=== PATIENT | female | born 1965 | race American Indian/Alaskan Native ===

== ENCOUNTER 2016-11-02 19:13 | Emergency (ER) | payer SELFPAY ==
[2016-11-02 20:52] LABS: Basophils % (Auto) 0.7 % (0.0-1.8); Eosinophils % (Auto) 4.1 % (0.0-4.3); Hematocrit 34.4 % (30.3-42.9); Hemoglobin 10.9 gm/dl (10.1-14.3); Mean Corpuscular HGB Conc 32 % (30-34); Mean Corpuscular Volume 75 fl (79-97); Platelet Count 245 K/mm3 (140-440); Red Blood Count 4.61 M/mm3 (3.65-5.03); Red Cell Distribution Width 17.5 % (13.2-15.2); White Blood Count 6.9 K/mm3 (4.5-11.0)
[2016-11-02 21:00] LABS: Mean Corpuscular Hemoglobin 24 pg (28-32)
[2016-11-02 21:10] LABS: Anion Gap 17 mmol/L; BUN/Creatinine Ratio 13.33; Blood Urea Nitrogen 12 mg/dL (7-17); Calcium 8.8 mg/dL (8.4-10.2); Carbon Dioxide 26 mmol/L (22-30); Chloride 96.6 mmol/L (98-107); Glucose 102 mg/dL (65-100); Potassium 3.9 mmol/L (3.6-5.0); Sodium 136 mmol/L (137-145)
--- NOTE | 2016-11-03 06:35 | Emergency Department Report ---
ED Chest Pain HPI - General Chief Complaint: Chest Pain Stated Complaint: CHEST PAIN Time Seen by Provider: 11/03/16 06:08 Source: patient Mode of arrival: Ambulatory Limitations: No Limitations - History of Present Illness Initial Comments: 51-year-old female presents to the emergency department complaining of chest pain. Patient reports the onset of chest pain 2 days ago. Pain has been intermittent since onset. Patient describes a sharp pain in the upper part of her chest that radiates just to the left of her sternum. Pain is worse with cough and deep breathing. She denies associated shortness of breath, dizziness , diaphoresis, nausea, or vomiting. Patient is pain-free at this time. There are no other complaints. MD Complaint: chest pain -: Gradual, days(s) (2) Onset: during rest Pain Location: substernal Pain Radiation: other (left of sternum) Severity: severe Severity scale (0 -10): 8 Quality: sharp Consistency: intermittent Improves With: nothing Worsens With: inspiration, palpation, movement re: denies: nausea, vomting, diaphoresis, dyspnea Other Symptoms: cough. denies: fever Treatments Prior to Arrival: none Aspirin use within the Past 7 Days: (0) No - Related Data Previous Rx's Medication Instructions Recorded Last Taken Type Amiodarone [Cordarone 200 MG TAB] 200 mg PO BID #60 tablet 09/10/16 Unknown Rx Carvedilol [Coreg] 3.125 mg PO BID #60 tablet 09/10/16 Unknown Rx Furosemide [Lasix] 20 mg PO QDAY #30 tablet 09/10/16 Unknown Rx Lisinopril [Zestril TAB] 2.5 mg PO QDAY #30 tablet 09/10/16 Unknown Rx Ibuprofen [Motrin 800 MG tab] 800 mg PO Q8HR PRN #20 tablet 11/03/16 Unknown Rx Allergies Allergy/AdvReac Type Severity Reaction Status Date / Time No Known Allergies Allergy Unverified 09/05/16 02:49 SHAZIA score - Shazia Score Age > 65: (0) No Aspirin use within the Past 7 Days: (0) No 3 or more CAD Risk Factors: (0) No 2 or more Angina events in past 24 hrs: (1) Yes Known CAD with more than 50% Stenosis: (0) No Elevated Cardiac Markers: (0) No ST Deviation Greater than 0.5mm: (0) No SHAZIA Score: 1 ED Review of Systems ROS: Stated complaint: CHEST PAIN Other details as noted in HPI Comment: All other systems reviewed and negative Respiratory: cough Cardiovascular: chest pain ED Past Medical Hx - Past Medical History Previous Medical History?: Yes Hx Congestive Heart Failure: Yes Hx Asthma: Yes Additional medical history: Anemia - Surgical History Past Surgical History?: No - Family History Family history: no significant - Social History Smoking Status: Never Smoker Substance Use Type: None - Medications Home Medications: Home Medications Medication Instructions Recorded Confirmed Last Taken Type Amiodarone [Cordarone 200 MG TAB] 200 mg PO BID #60 tablet 09/10/16 Unknown Rx Carvedilol [Coreg] 3.125 mg PO BID #60 tablet 09/10/16 Unknown Rx Furosemide [Lasix] 20 mg PO QDAY #30 tablet 09/10/16 Unknown Rx Lisinopril [Zestril TAB] 2.5 mg PO QDAY #30 tablet 09/10/16 Unknown Rx Ibuprofen [Motrin 800 MG tab] 800 mg PO Q8HR PRN #20 tablet 11/03/16 Unknown Rx ED Physical Exam - General Limitations: No Limitations General appearance: alert, in no apparent distress - Head Head exam: Present: atraumatic, normocephalic - Eye Eye exam: Present: normal appearance, PERRL, EOMI - ENT ENT exam: Present: normal exam, normal orophraynx, mucous membranes moist - Neck Neck exam: Present: normal inspection, full ROM. Absent: tenderness - Respiratory Respiratory exam: Present: normal lung sounds bilaterally, chest wall tenderness (anterior superior chest wall tenderness to palpation. Palpation reproduces her complaint.). Absent: respiratory distress - Cardiovascular Cardiovascular Exam: Present: regular rate, normal rhythm, normal heart sounds - GI/Abdominal GI/Abdominal exam: Present: soft, normal bowel sounds. Absent: distended, tenderness - Extremities Exam Extremities exam: Present: normal inspection, full ROM. Absent: tenderness - Back Exam Back exam: Present: normal inspection, full ROM. Absent: tenderness - Neurological Exam Neurological exam: Present: alert, oriented X3. Absent: motor sensory deficit - Skin Skin exam: Present: warm, dry, intact ED Course Vital Signs 11/02/16 11/03/16 11/03/16 19:30 01:27 02:49 Temperature 98.6 F 98.4 F Pulse Rate 107 H 89 79 Respiratory 18 18 16 Rate Blood Pressure 127/85 136/88 O2 Sat by Pulse 100 100 100 Oximetry 11/03/16 11/03/16 11/03/16 03:00 03:30 04:00 Temperature Pulse Rate 87 81 85 Respiratory 16 18 14 Rate Blood Pressure 123/82 127/76 129/80 O2 Sat by Pulse 99 99 Oximetry 11/03/16 11/03/16 11/03/16 04:30 05:00 06:08 Temperature Pulse Rate 85 82 83 Respiratory 15 17 14 Rate Blood Pressure 128/80 131/76 131/83 O2 Sat by Pulse 100 98 99 Oximetry 11/03/16 06:34 Temperature Pulse Rate Respiratory 20 Rate Blood Pressure O2 Sat by Pulse 100 Oximetry ED Medical Decision Making - Lab Data Result diagrams: 11/02/16 20:41 11/02/16 20:41 - EKG Data -: EKG Interpreted by Me EKG shows normal: sinus rhythm, axis, QRS complexes Rate: normal - EKG Data When compared to previous EKG there are: previous EKG unavailable Interpretation: nonspecific ST-T wave jann, other (prolonged QT interval) - Radiology Data Radiology results: image reviewed interpreted by me: PA and lateral chest x-ray reveal no acute cardiopulmonary abnormalities. - Medical Decision Making Lab and imaging results reviewed and discussed with the patient. Patient has had 3 negative troponins and a nonischemic ECG. Patient will be discharged home at this time to follow up with her primary care physician. - Differential Diagnosis atypical chest pain, chest wall pain, pneumonia Critical care attestation.: If time is entered above; I have spent that time in minutes in the direct care of this critically ill patient, excluding procedure time. ED Disposition Clinical Impression: Chest wall pain Disposition: DISCHARGED TO HOME OR SELFCARE Is pt being admited?: No Condition: Stable Instructions: Chest Pain (ED) Prescriptions: Ibuprofen [Motrin 800 MG tab] 800 mg PO Q8HR PRN #20 tablet PRN Reason: Pain Referrals: PRIMARY CARE, [Primary Care Provider] - 3-5 Days Time of Disposition: 07:00
[2016-11-03 07:19] VITALS: BP 128/78
--- NOTE | 2016-11-03 07:22 | XRay Report ---
ROUTINE CHEST, TWO VIEWS: HISTORY: Chest pain, cough. Bilateral perihilar infiltrates have resolved since 09/05/16. The lungs are clear. No pleural effusion or pneumothorax. Heart size is the upper limits of normal. Normal pulmonary vascularity. Normal bony thorax. IMPRESSION: Unremarkable chest x-ray.
== END 2016-11-03 07:19 | disposition home or self-care (01) ==
LOC: ED 19:13
DX: R07.89 Other chest pain (principal); I50.9 Heart failure, unspecified; J45.909 Unspecified asthma, uncomplicated; D64.9 Anemia, unspecified
CPT/HCPCS: 36415; 71020; 80048; 84484; 85025; 93005; 93010